=== PATIENT | female | born 1980 | race Caucasian/White ===

== ENCOUNTER 2019-08-17 19:04 | Emergency (ER) | payer OTHER ==
[~2019-08-17] VITALS: Ht 157.5 cm; Wt 74.8 kg
[2019-08-17] MEDS ORDERED: NORVASC 2.5 MG2.5 M1 PO (19:12)
[2019-08-17] MEDS ORDERED: NORCO 5-325 TA1 EAC1 PO ×2 (20:56→21:44)
[2019-08-17 22:19] VITALS: BP 155/89
== END 2019-08-17 22:19 | disposition home or self-care (01) ==
LOC: M.ERS 19:04
DX: S16.1XXA Strain of muscle, fascia and tendon at neck level, initial encounter (principal); M25.561 Pain in right knee; I10 Essential (primary) hypertension; Z90.710 Acquired absence of both cervix and uterus; Z88.0 Allergy status to penicillin; V49.49XA Driver injured in collision with other motor vehicles in traffic accident, initial encounter; Y93.89 Activity, other specified; Y92.89 Other specified places as the place of occurrence of the external cause; Y99.8 Other external cause status